=== PATIENT | female | born 1945 | race Caucasian/White ===

== ENCOUNTER 2019-02-02 20:12 | Outpatient (CLI) | payer MEDICARE, OTHER ==
--- NOTE | 2019-02-04 08:55 | Ultrasound Report ---
Reason: MASS OF NECK,GOITER, Procedure Date: 02/02/2019 Accession Number: [id number] / [id number] Procedure: US - Head or Neck Soft Tissue CPT Code: FULL RESULT: EXAM: THYROID ULTRASOUND EXAM DATE: 02/02/2019 07:35 PM. CLINICAL HISTORY: MASS OF Neck, goiter. COMPARISON: None. TECHNIQUE: Real time sonographic imaging of the thyroid was performed by the refinery operator vapor recovery unit. Multiple territory service representative static images were saved for review. FINDINGS: THYROID GLAND: Right Lobe: 4.4 x 1.1 x 1.1 cm, volume 2.6 cc. Heterogeneous background echotexture. Right Lobe Nodules: Several small cystic and slightly complex hypoechoic spaces all measuring under 5 mm. Left Lobe: 4.5 x 1.8 x 1.4 cm, volume 5.2 cc. Heterogeneous background echotexture. Left Lobe Nodules: 1 solid 4 x 5 x 5 mm nodule with rim calcification lateral mid thyroid. One hypoechoic potentially spongiform 4 x 6 x 4 mm nodule medial mid thyroid. Isthmus: 0.2 cm AP. Isthmic Nodules: None. LYMPH NODES: No adenopathy demonstrated in the central or lateral compartment. OTHER: None. IMPRESSION: Normal size thyroid. No suspicious nodules meeting the criteria for FNA at this time. Suggest follow-up thyroid ultrasound in one year. Management recommendations are based on 2015 [place] [employer] Management Guidelines for Adult Patients with Thyroid Nodules and Differentiated Thyroid Cancer. RADIA
== END 2019-02-02 20:13 | disposition home or self-care (01) ==
LOC: DI 20:12
PROVIDERS: ATTEND Nurse Practitioner Family
DX: E04.9 Nontoxic goiter, unspecified (principal); R22.1 Localized swelling, mass and lump, neck
CPT/HCPCS: 76536